=== PATIENT | male | born 1990 | race Two or more races ===

== ENCOUNTER 2018-03-01 03:12 | Emergency (ER) | payer MEDICAID, OTHER ==
[~2018-03-01] VITALS: Ht 157.5 cm; Wt 72.6 kg
[2018-03-01 04:28] LABS: Basophils # (auto) 0 uL; Basophils % (auto) 0.3 % (0.0-2.0); Eosinophils # (auto) 0.1 uL; Hematocrit 45.1 % (41.0-53.0); Lymphocytes # (auto) 1.9 uL; Lymphocytes % (auto) 21.3 % (10.0-50.0); Mean Corpuscular Hemoglobin 28.8 pg (28.0-32.0); Mean Corpuscular Hgb Conc. 33.2 g/dL (32.0-36.0); Mean Corpuscular Volume 86.8 fL (80.0-100.0); Monocytes # (auto) 0.5 uL; Monocytes % (auto) 5.8 % (0.0-12.0); Neutrophils # (auto) 6.5 uL; Neutrophils % (auto) 71.6 % (37.0-80.0); Nucleated Red Blood Cells % 0.1 %; Platelet Count (auto) 183 10^3/uL (140-450); Red Cell Distribution Width 13.8 % (11.8-14.3); White Blood Cell 9.1 10^3/uL (4.4-10.8)
[2018-03-01 04:38] LABS: Alanine Aminotransferase 24 U/L (16-61); Anion Gap 11 (5-15); Aspartate Aminotransferase 26 U/L (15-37); BUN/Creatinine Ratio 15.5; Blood Urea Nitrogen 17 mg/dL (7-18); Calcium 8.7 mg/dL (8.5-10.1); Carbon Dioxide 25 mmol/L (21-32); Chloride 103 mmol/L (98-107); GFR African American 103 mL/min; GFR Non-African American 85 mL/min; Glucose 142 mg/dL (74-106); Magnesium 1.9 mg/dL (1.6-2.6); Potassium 3.3 mmol/L (3.5-5.1); Sodium 139 mmol/L (136-145)
[2018-03-01 04:43] LABS: Alkaline Phosphatase 80 U/L (45-117); Bilirubin, Total 0.4 mg/dL (0.2-1.0); Total Protein 7.6 g/dL (6.4-8.2)
[2018-03-01] MEDS ORDERED: POTASSIUM EFFERVESENT TAB 25 MEQ PO ONE (08:00)
[2018-03-01 08:09] VITALS: BP 109/70
[2018-03-01] MEDS ORDERED: POTASSIUM EFFERVESENT TAB 25 MEQ ONE (08:12)
[2018-03-01 08:24] LABS: Urine Bacteria FEW /hpf (None Seen); Urine Blood Negative /uL (Negative); Urine Mucus FEW (None Seen); Urine Specific Gravity 1.011 (1.001-1.035); Urine WBC 3 /hpf (0 - 3)
== END 2018-03-01 08:41 | disposition home or self-care (01) ==
LOC: EDSEX 03:12 → EDBD 03:12 → ER 03:16
DX: R42 Dizziness and giddiness (principal); R55 Syncope and collapse
CPT/HCPCS: 36415; 70450; 70486; 71045; 80053; 81001; 83735; 84484; 85025; 93005

== ENCOUNTER → 2023-11-30 | Outpatient (CLI) | payer MEDICAID ==
[2023-11-30 09:53] LABS: Urine Bacteria None Seen /hpf (None Seen)
[2023-11-30 10:01] LABS: Basophils # (auto) 0.1 10 ^3/uL (0-0.2); Basophils % (auto) 1.2 % (0.0-2.0); Eosinophils # (auto) 0.1 10 ^3/uL (0-0.8); Eosinophils % (auto) 2.9 % (0.0-7.0); Hematocrit 46.1 % (41.0-53.0); Hemoglobin 15.2 g/dL (13.5-17.5); Lymphocytes % (auto) 39.4 % (10.0-50.0); Mean Corpuscular Hemoglobin 28.8 pg (28.0-32.0); Mean Corpuscular Hgb Conc. 32.9 g/dL (32.0-36.0); Mean Corpuscular Volume 87.5 fL (80.0-100.0); Monocytes # (auto) 0.3 10 ^3/uL (0-1.3); Monocytes % (auto) 5.9 % (0.0-12.0); Neutrophils # (auto) 2.5 10 ^3/uL (1.6-8.6); Neutrophils % (auto) 50.6 % (37.0-80.0); Nucleated Red Blood Cells % 0.2 %; Red Blood Cells 5.26 10^6/uL (4.5-5.90); Red Cell Distribution Width 13.3 % (11.8-14.3)
[2023-11-30 10:22] LABS: Urine Blood Negative /uL (Negative); Urine Clarity Clear (Clear); Urine Protein, UAD Negative (Negative); Urine Specific Gravity 1.004 (1.001-1.035); Urine Urobilinogen Normal (Negative); Urine WBC 9 /hpf (0 - 3)
[2023-11-30 10:24] LABS: Urine Color Straw (Yellow)
[2023-11-30 10:31] LABS: Alanine Aminotransferase 10 U/L (7-40); Albumin 4.4 g/dL (3.2-4.8); Alkaline Phosphatase 76 U/L (46-116); Anion Gap 4 (5-15); Aspartate Aminotransferase 16 U/L (13-40); BUN/Creatinine Ratio 5.6 (10.0-20.0); Blood Urea Nitrogen 6 mg/dL (9-23); Calcium 9.7 mg/dL (8.5-10.1); Carbon Dioxide 29 mmol/L (20-30); Chloride 106 mmol/L (98-107); Glucose 103 mg/dL (74-106); LDL Cholesterol 133 mg/dL (< 100); Potassium 4.2 mmol/L (3.5-5.1); Sodium 139 mmol/L (136-145); Triglycerides 229 mg/dL (< 150)
[2023-11-30 10:32] LABS: Bilirubin, Total 0.6 mg/dL (0.2-1.0); Cholesterol 207 mg/dL (< 200); HDL Cholesterol 42 mg/dL (40-59)
[2023-12-02 08:05] LABS: Chlamydia Trachomatis, NAA Negative (Negative); Neisseria gonorrhoeae, NAA Negative (Negative)
[2023-12-02 13:06] LABS: RPR Non Reactive (Non Reactive)
[2023-12-03 09:57] LABS: Hepatitis B Core Total AB Negative (Negative)
[2023-12-03 13:41] LABS: Hepatitis A Total Antibody Positive (Negative); Hepatitis B Surface Antibody Negative (Negative); Hepatitis B Surface Antigen Negative (Negative); Hepatitis C Antibody Negative (Negative)
== END | disposition home or self-care (01) ==
LOC: LAB 09:38
DX: Z00.01 Encounter for general adult medical examination with abnormal findings (principal); E55.9 Vitamin D deficiency, unspecified
CPT/HCPCS: 36415; 80053; 80061; 81001; 82306; 83036; 84443; 85025; 86592; 86703; 86704; 86706; 86708; 86803; 87340

== ENCOUNTER → 2024-04-03 | Outpatient (CLI) | payer MEDICAID ==
[2024-04-03 10:14] LABS: Alanine Aminotransferase 11 U/L (7-40); Alkaline Phosphatase 77 U/L (46-116); Anion Gap 7 (5-15); Calcium 10.1 mg/dL (8.7-10.4); Carbon Dioxide 27 mmol/L (20-30); Chloride 103 mmol/L (98-107); Glucose 101 mg/dL (74-106); Potassium 4.1 mmol/L (3.5-5.1); Sodium 137 mmol/L (136-145)
[2024-04-03 10:15] LABS: BUN/Creatinine Ratio 7.4 (10.0-20.0); Blood Urea Nitrogen 8 mg/dL (9-23); LDL Cholesterol 132 mg/dL (< 100); Triglycerides 270 mg/dL (< 150)
[2024-04-03 10:16] LABS: Albumin 4.6 g/dL (3.2-4.8)
[2024-04-03 10:17] LABS: Aspartate Aminotransferase 13 U/L (13-40); Bilirubin, Total 0.8 mg/dL (0.2-1.0); Cholesterol 198 mg/dL (< 200); HDL Cholesterol 39 mg/dL (40-59); Total Protein 7.2 g/dL (5.7-8.2)
[2024-04-03 12:51] LABS: Hepatitis B Core Total AB Negative (Negative)
[2024-04-03 13:15] LABS: Hepatitis A Total Antibody Positive (Negative); Hepatitis B Surface Antibody Negative (Negative); Hepatitis B Surface Antigen Negative (Negative); Hepatitis C Antibody Negative (Negative)
== END | disposition home or self-care (01) ==
LOC: LAB 09:14
PROVIDERS: ATTEND Student in an Organized Health Care Education/Training Program
DX: E78.5 Hyperlipidemia, unspecified (principal)
CPT/HCPCS: 36415; 80053; 80061; 82728; 83540; 83550; 86704; 86706; 86708; 86803; 87340

== ENCOUNTER 2024-10-07 08:13 | Emergency (ER) | payer OTHER ==
[~2024-10-07] VITALS: Ht 165.1 cm; Wt 79.3 kg
[2024-10-07 08:33] VITALS: PULSE 74; RESP 17; O2SAT 98
--- NOTE | 2024-10-07 09:11 | ED.PDOC ---
GI ASSESSMENT HPI Comments 33 y/o M, presents to the ED for CC of abdominal pain. Patient states, he has been experiencing epigastric abdominal pain with associated hiccups, nausea, and vomiting. Patient relays, that hiccups have caused him to be unable to sleep often waking him up. Patient denies fever, chills, diarrhea, body-aches, fatigue, or weakness. No other associated symptoms, modifiers, recent injuries or sick contacts at this time. Chief Complaint: Abdominal Pain Time Seen by MD: 09:00 Primary Care Provider: none Reviewed Notes: Nurses Notes, Medications, Allergies Allergies: Coded Allergies: NO KNOWN ALLERGIES (Unverified , 06/24/15) Home Meds Active Scripts Pantoprazole Sodium Sesquihydr (Protonix) 40 Mg Tab, 40 MG PO DAILY for 7 Days, #7 TAB Prov:CRISTIANE BROOKE MD 10/07/24 Information Source: Patient Mode of Arrival: Ambulatory Timing: Days Duration: Since onset Prehospital treatment: None Quality: None Vomitus: Watery Stool: Normal Severity: Moderate Recent: None Recent Hx of: None Pain Location: Epigastric Modifying Factors: Nothing Associated sign and symptoms: Nausea, Vomiting Past Medical History PAST MEDICAL HISTORY: Denies Surgical History: Denies all surgeries Family History Family History: Unknown Social History Smoker: Non-Smoker Alcohol: Denies ETOH Use Drugs: Denies Drug Use Lives In: Home Constitutional: denies: chills, diaphoresis, fatigue, fever, malaise, sweats, weakness, others EENTM: denies: blurred vision, double vision, ear bleeding, ear discharge, ear drainage, ear pain, ear ringing, eye pain, eye redness, hearing loss, mouth pain, mouth swelling, nasal discharge, nose bleeding, nose congestion, nose pain, photophobia, tearing, throat pain, throat swelling, voice changes, others Respiratory: denies: cough, hemoptysis, orthopnea, SOB at rest, shortness of breath, SOB with excertion, stridor, wheezing, others Cardiovascular: denies: chest pain, dizzy spells, diaphoresis, Dyspnea on exertion, edema, irregular heart beat, left arm pain, lightheadedness, palpitations, PND, syncope, others Gastrointestinal: reports: abdominal pain, nausea, vomiting; denies: abdomen distended, blood streaked bowels, constipated, diarrhea, dysphagia, difficulty swallowing, hematemesis, melena, poor appetite, poor fluid intake, rectal bleeding, rectal pain, others Genitourinary: denies: burning, dysuria, flank pain, frequency, hematuria, incontinence, penile discharge, penile sore, pain, testicle pain, testicle swelling, urgency, others Neurological: denies: dizziness, fainting, headache, left sided numbness, left sided weakness, numbness, paresthesia, pre-existing deficit, right sided numbness, right sided weakness, seizure, speech problems, tingling, tremors, weakness, others Musculoskeletal: denies: back pain, gout, joint pain, joint swelling, muscle pain, muscle stiffness, neck pain, others Integumetry: denies: bruises, change in color, change in hair/nails, dryness, laceration, lesions, lumps, rash, wounds, others Allergic/Immunocompromised: denies: Difficulty Healing, Frequent Infections, Hives, Itching, others Hematologic/Lymphatic: denies: anemia, blood clots, easy bleeding, easy bruising, swollen glands, others Endocrine: denies: excessive hunger, excessive sweating, excessive thirst, excessive urination, flushing, intolerance to cold, intolerance to heat, unexplained weight gain, unexplained weight loss, others Psychiatric: denies: anxiety, bipolar disorder, depression, hopeless, panic disorder, schizophrenia, sleepless, suicidal, others All Other Systems: Reviewed and Negative Physical Exam General Appearance: Moderate Distress HEENT: Normal ENT Inspection, Pharynx Normal, TMs Normal Neck: Full Range of Motion, Non-Tender, Normal, Normal Inspection Respiratory: Chest Non-Tender, Lungs Clear, No Accessory Muscle Use, No Respiratory Distress, Normal Breath Sounds Cardiovascular: Tachycardia Breast Exam: Deferred Gastrointestinal: No Organomegaly, Non Tender, No Pulsatile Mass, Normal Bowel Sounds, Soft Genitalia: Deferred Pelvic: Deferred Rectal: Deferred Extremities: No calf tenderness, Normal capillary refill, Normal inspection, Normal range of motion, Non-tender, No pedal edema Musculoskeletal : Apperance: Normal Neurologic: Alert, 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 Was a procedure done?: No GI differential Dx Differential Diagnosis: Constipation, Diverticular disease, Esophagitis, Gastritis/PUD, Gastroenteritis, Electrolyte Imbalance, Food Poisoning, Bacterial, Viral X-Ray, Labs, Meds, VS Vital Signs Date Time Temp Pulse Resp B/P (MAP) Pulse Ox O2 Delivery O2 Flow Rate FiO2 10/07/24 08:35 99.5 74 17 121/64 (83) 98 99.5 10/07/24 08:33 74 17 98 Room Air* 0 21 10/07/24 08:21 98.4 77 17 112/61 (78) 97 98.4 Lab Test 10/07/24 09:36 Range/Units Urine Color Yellow Yellow Urine Clarity Clear Clear Urine pH 6.0 5.0-9.0 Urine Specific [place] 1.033 1.001-1.035 Urine Protein 1+ H Negative Urine Ketones 3+ H Negative Urine Blood Trace H Negative /uL Urine Nitrite Negative Negative Urine Bilirubin Negative Negative Urine Urobilinogen Normal Negative mg/dL Urine Leukocyte Esterase Negative Negative /uL Urine RBC 4 0 - 3 /hpf Urine Microscopic WBC 4 H 0-3 /HPF Urine Squamous Epithelial Cells Few <5 /hpf Urine Bacteria None seen None Seen /hpf Urine Mucus Few None Seen Urine Glucose Trace Normal mg/dL Current Medications Medications (Trade) Dose Ordered Sig/Ni Route Start Time Stop Time Status Last Admin Belladonna Alkaloids/ Phenobarbital ( Elixir) 10 ml ONCE ONCE PO 10/07/24 09:00 10/07/24 09:01 DC 10/07/24 09:24 Al Hydrox/Mg Hydrox/Simethicone (Maalox Plus) 30 ml ONCE ONCE PO 10/07/24 09:00 10/07/24 09:01 DC 10/07/24 09:24 Lidocaine HCl (Xylocaine 2% Viscous) 15 ml ONCE ONCE PO 10/07/24 09:00 10/07/24 09:01 DC 10/07/24 09:24 Sodium Chloride 1,000 ml @ 1,000 mls/hr Q1H ONCE IV 10/07/24 09:00 10/07/24 09:59 DC 10/07/24 09:23 Lorazepam (Ativan Inj) 1 mg ONCE ONCE IV 10/07/24 09:00 10/07/24 09:01 DC 10/07/24 09:[address] [address] Ph: [phone] DIAGNOSTIC IMAGING Diagnostic Imaging Report : [id number] Signed PATIENT: TYLER MURRYT: [id number] UNIT: [id number] : 1990 LOC: ER ROOM / BED: / AGE / SEX: 33 / M ADM STATUS: REG ER SERVICE 4 ORDERING PHYSICIAN: CRISTIANE BROOKE MD PROCEDURE(s): CXRP - CHEST PORTABLE REASON: sob ORDER NUMBER(s): [id number], ACCESSION NUMBER(s): [id number] CHEST RADIOGRAPH Indication: sob Technique: Single frontal view of the chest was obtained Comparison: None FINDINGS: Lines and Tubes: None Lungs: No focal consolidation. Pleura: No effusion. No pneumothorax. Cardiomediastinal contours: Unremarkable Bones: No acute osseous abnormality. IMPRESSION: 1. No acute cardiopulmonary disease. ATED BY: LASHAE MAGAÑA MD DICTATED DATE/TIME: 10/07/24915 SIGNED BY: LASHAE MAGAÑA MD SIGNED DATE/TIME: 10/07/24915 CC: Patient alert. No sign of any distress. No shortness a breath. Vitals stable. No leg swelling. He is anxious. Possible gastritis. Was given GI cocktail. Establish intravenous access. Was given fluids. Chest x-ray reviewed does not show any acute process. Was given Ativan. Heart rate within normal limits. No sign of distress. Possible gastritis. Was given prescription of Protonix. Explained to the patient. Was told to follow up with his primary care physician. Was told to come back if there is any problem. Time of 1ST Reevaluation: 09:30 Reevaluation 1ST: Improved Patient Education/Counseling: Diagnosis, Treatment Family Education/Counseling: Diagnosis, Treatment Departure 1 Departure Time of Disposition: 11:04 Impression: Primary Impression: Gastritis Qualified Codes: K29.00 - Acute gastritis without bleeding Additional Impressions: Anxiety Dehydration Disposition: 01 HOME / SELF CARE / HOMELESS Condition: Good e-Prescriptions Pantoprazole Sodium Sesquihydr (Protonix) 40 Mg Tab 40 MG PO DAILY for 7 Days, #7 TAB Prov: CRISTIANE BROOKE MD 10/07/24 Discharged With: Self Critical Care Note Critical Care Time?: No Stability Stability form required: No Heart Score Heart Score: Heart Score Response (Comments) Value History N/A 0 EKG N/A 0 Age N/A 0 Risk Factors N/A 0 Troponin N/A 0 Total 0 I personally scribed for CRISTIANE BROOKE MD ([email or web address]) on 10/07/24 at 09:11. Electronically submitted by Simi Can ([email or web address]). I personally scribed for CRISTIANE BROOKE MD ([email or web address]) on 10/07/24 at 10:18. Electronically submitted by Simi Can ([email or web address]). CRISTIANE BROOKE MD Oct 07, 2024 09:11
--- NOTE | 2024-10-07 09:18 | DVH ---
CHEST RADIOGRAPH Indication: sob Technique: Single frontal view of the chest was obtained Comparison: None FINDINGS: Lines and Tubes: None Lungs: No focal consolidation. Pleura: No effusion. No pneumothorax. Cardiomediastinal contours: Unremarkable Bones: No acute osseous abnormality. IMPRESSION: 1. No acute cardiopulmonary disease.
[2024-10-07] MEDS: SODIUM CHLORIDE 0.9% 1,000 ML IV ONE (09:23)
[2024-10-07] MEDS: LORazepam 2MG/ML-1ML VIAL IV ONE (09:23)
[2024-10-07] MEDS: LIDOCAINE VISCOUS 2% 15ML UD PO ONE (09:24)
[2024-10-07] MEDS: DONNATAL 5ml ORAL Elix (BELLADONNA ALK-PHENOBARB) PO ONE (09:24)
[2024-10-07] MEDS: MAALOX PLUS or MAALOX 30 ML PO ONE (09:24)
[2024-10-07 10:43] LABS: Urine Bacteria None Seen /hpf (None Seen)
[2024-10-07 11:03] LABS: Urine Blood TRACE /uL (Negative); Urine Clarity Clear (Clear); Urine Color Yellow (Yellow); Urine Mucus FEW (None Seen); Urine Protein, UAD 1+ (Negative); Urine Specific Gravity 1.033 (1.001-1.035); Urine Squamous Epithelial Cell FEW /hpf (<5); Urine Urobilinogen Normal (Negative); Urine WBC 4 /HPF (0-3)
[2024-10-07] MEDS ORDERED: PANT40TA2 PO (11:05)
[2024-10-07 11:18] VITALS: BP 114/59; PULSE 81; RESP 17; TEMP 99.5; O2SAT 98
== END 2024-10-07 11:18 | disposition home or self-care (01) ==
LOC: ER 08:13
DX: K29.70 Gastritis, unspecified, without bleeding (principal); F41.9 Anxiety disorder, unspecified; E86.0 Dehydration; R11.2 Nausea with vomiting, unspecified; Z79.899 Other long term (current) drug therapy
CPT/HCPCS: 71045; 81001; 96361; 96374; 99284; J2060; J7030

== ENCOUNTER 2024-10-09 13:40 | Inpatient (IN) | payer OTHER, MEDICARE ==
[~2024-10-09] VITALS: Ht 165.1 cm; Wt 79.7 kg
[~2024-10-09 13:40] MED LIST: PANT40TA2 PO
--- NOTE | 2024-10-09 14:53 | ED.PDOC ---
History of Present Illness HPI Comments A 33 YEAR OLD MALE PRESENTS TO THE ED WITH CHIEF COMPLAINT OF EPIGASTRIC PAIN AND BURPING. PATIENT REPORTS THAT HE HAS BEEN EXPERIENCING EPIGASTRIC PAIN WITH ASSOCIATED RADIATION TO MID STERNUM AND BURPING FOR THE PAST WEEK. PATIENT RELAYS THAT HE HAS HAD SIMILAR SYMPTOMS IN THE PAST WHEN EATING SPICY FOOD AND HE HAD BEEN DIAGNOSED WITH GERD. PATIENT NOTES HE HAD BEEN SEEN IN THE ED 2 DAYS AGO AND WAS DIAGNOSED WITH GASTRITIS AND ANXIETY, BEING PRESCRIBED PROTONIX WITH NO RELIEF NOTED WHEN IT WAS TAKEN. PATIENT DENIES ANY FEVER, CHILLS, N/V/D, DIZZINESS, HEADACHE, NUMBNESS, OR WEAKNESS. NO OTHER SYMPTOMS REPORTED AT THIS TIME OF CARE. Chief Complaint: Medical Clearance Time Seen by MD: 14:49 Primary Care Provider: none Reviewed Notes: Nurses Notes, Medications, Allergies Allergies: Coded Allergies: NO KNOWN ALLERGIES (Unverified , 06/24/15) Home Meds Active Scripts Pantoprazole Sodium Sesquihydr (Protonix) 40 Mg Tab, 40 MG PO DAILY for 7 Days, #7 TAB Prov:CRISTIANE BROOKE MD 10/07/24 Information Source: Patient Mode of Arrival: Ambulatory Severity: Moderate Timing: Weeks Duration: Since onset Prehospital treatment: None Medication Refill: For: Other (EPIGASTRIC PAIN TO STERNUM WITH BURPING) Past Medical History PAST MEDICAL HISTORY: Anxiety, GERD Surgical History: Denies all surgeries Family History Family History: Unknown Social History Smoker: Non-Smoker Alcohol: Denies ETOH Use Drugs: Denies Drug Use Lives In: Home Constitutional: denies: chills, diaphoresis, fatigue, fever, malaise, sweats, weakness, others EENTM: denies: blurred vision, double vision, ear bleeding, ear discharge, ear drainage, ear pain, ear ringing, eye pain, eye redness, hearing loss, mouth pain, mouth swelling, nasal discharge, nose bleeding, nose congestion, nose pain, photophobia, tearing, throat pain, throat swelling, voice changes, others Respiratory: denies: cough, hemoptysis, orthopnea, SOB at rest, shortness of breath, SOB with excertion, stridor, wheezing, others Cardiovascular: reports: chest pain; denies: dizzy spells, diaphoresis, Dyspnea on exertion, edema, irregular heart beat, left arm pain, lightheadedness, palpitations, PND, syncope, others Gastrointestinal: reports: abdominal pain, others (BURPING); denies: abdomen distended, blood streaked bowels, constipated, diarrhea, dysphagia, difficulty swallowing, hematemesis, melena, nausea, poor appetite, poor fluid intake, rectal bleeding, rectal pain, vomiting Genitourinary: denies: burning, dysuria, flank pain, frequency, hematuria, incontinence, penile discharge, penile sore, pain, testicle pain, testicle swelling, urgency, others Neurological: denies: dizziness, fainting, headache, left sided numbness, left sided weakness, numbness, paresthesia, pre-existing deficit, right sided numbness, right sided weakness, seizure, speech problems, tingling, tremors, weakness, others Musculoskeletal: denies: back pain, gout, joint pain, joint swelling, muscle pain, muscle stiffness, neck pain, others Integumetry: denies: bruises, change in color, change in hair/nails, dryness, laceration, lesions, lumps, rash, wounds, others Allergic/Immunocompromised: denies: Difficulty Healing, Frequent Infections, Hives, Itching, others Hematologic/Lymphatic: denies: anemia, blood clots, easy bleeding, easy bruising, swollen glands, others Endocrine: denies: excessive hunger, excessive sweating, excessive thirst, excessive urination, flushing, intolerance to cold, intolerance to heat, unex plained weight gain, unexplained weight loss, others Psychiatric: reports: anxiety; denies: bipolar disorder, depression, hopeless, panic disorder, schizophrenia, sleepless, suicidal, others All Other Systems: Reviewed and Negative Physical Exam General Appearance: Mild Distress, Other (ANXIOUS ) HEENT: Normal ENT Inspection, PERRL/EOMI Neck: Full Range of Motion, Non-Tender, Normal, Normal Inspection Respiratory: Chest Non-Tender, Lungs Clear, No Accessory Muscle Use, No Respiratory Distress, Normal Breath Sounds Cardiovascular: No Edema, No JVD, No Murmur, No Gallop, Normal Peripheral Pulses, Regular Rate/Rhythm Breast Exam: Deferred Gastrointestinal: Epigastric, No Organomegaly, No Pulsatile Mass, Normal Bowel Sounds, Soft, Tenderness (EPIGASTRIC, NO GUARDING AND REBOUND TENDERNESS, +BURPING. 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 Was a procedure done?: No Differential Dx Considerations may include: GERD, GASTRITIS, GASTROENTERITIS, PANCREATITIS, CHOLECYSTITIS X-Ray, Labs, Meds, VS Vital Signs Date Time Temp Pulse Resp B/P (MAP) Pulse Ox O2 Delivery O2 Flow Rate FiO2 10/09/24 14:41 98.9 68 18 112/72 (85) 98 98.9 10/09/24 14:41 68 18 98 Room Air 10/09/24 13:54 98.9 68 18 112/72 (85) 98 98.9 Lab Test 10/09/24 15:02 Range/Units White Blood Count 4.4 4.4-10.8 10^3/uL Red Blood Count 4.92 4.5-5.90 10^6/uL Hemoglobin 14.3 13.5-17.5 g/dL Hematocrit 43.1 41.0-53.0 % Mean Corpuscular Volume 87.6 80.0-100.0 fL Mean Corpuscular Hemoglobin 29.0 28.0-32.0 pg Mean Corpuscular Hemoglobin Concent 33.1 32.0-36.0 g/dL Red Cell Distribution Width 13.3 11.8-14.3 % Platelet Count 154 140-450 10^3/uL Mean Platelet Volume 9.2 6.9-10.8 fL Neutrophils (%) (Auto) 70.4 37.0-80.0 % Lymphocytes (%) (Auto) 17.5 10.0-50.0 % Monocytes (%) (Auto) 11.6 0.0-12.0 % Eosinophils (%) (Auto) 0.2 0.0-7.0 % Basophils (%) (Auto) 0.3 0.0-2.0 % Neutrophils # (Auto) 3.1 1.6-8.6 10 ^3/uL Lymphocytes # (Auto) 0.8 0.4-5.4 10 ^3/uL Monocytes # (Auto) 0.5 0-1.3 10 ^3/uL Eosinophils # (Auto) 0 0-0.8 10 ^3/uL Basophils # (Auto) 0 0-0.2 10 ^3/uL Nucleated Red Blood Cells 0.3 % Sodium Level 132 L 136-145 mmol/L Potassium Level 3.4 L 3.5-5.1 mmol/L Chloride Level 97 L 98-107 mmol/L Carbon Dioxide Level 23 20-31 mmol/L Anion Gap 12 5-15 Blood Urea Nitrogen 11 9-23 mg/dL Creatinine 0.81 0.700-1.30 mg/dL Glomerular Filtration Rate Calc 119 >90 mL/min BUN/Creatinine Ratio 13.6 10.0-20.0 Serum Glucose 105 74-106 mg/dL Calcium Level 8.7 8.7-10.4 mg/dL Total Bilirubin 0.7 0.2-1.0 mg/dL Aspartate Amino Transferase (AST) 29 13-40 U/L Alanine Aminotransferase (ALT) 16 7-40 U/L Alkaline Phosphatase 60 46-116 U/L Troponin I High Sensitivity 3 L </=54 ng/L Total Protein 6.1 5.7-8.2 g/dL Albumin 4.1 3.2-4.8 g/dL Lipase 115 H 12-53 U/L Plasma/Serum Blood Alcohol 4.7 <10 mg/dL Current Medications Medications (Trade) Dose Ordered Sig/Ni Route Start Time Stop Time Status Last Admin Belladonna Alkaloids/ Phenobarbital ( Elixir) 10 ml ONCE ONCE PO 10/09/24 15:00 10/09/24 15:01 DC 10/09/24 15:13 Al Hydrox/Mg Hydrox/Simethicone (Maalox Plus) 30 ml ONCE ONCE PO 10/09/24 15:00 10/09/24 15:01 DC 10/09/24 15:11 Famotidine (Pepcid Tablet) 40 mg ONCE ONCE PO 10/09/24 15:00 10/09/24 15:01 DC 10/09/24 15:13 Lidocaine HCl (Xylocaine 2% Viscous) 10 ml ONCE ONCE PO 10/09/24 15:00 10/09/24 15:01 DC 10/09/24 15:13 GALLBLADDER US: Findings: Liver measures 15.0 cm in length with normal echotexture and contour. No evidence of focal hepatic lesions or intra- or extrahepatic ductal dilatation. Common bile duct measures 0.4 cm in diameter. Normal hepatopedal flow noted within the portal vein. No perihepatic free fluid is noted. Gallbladder appears within normal limits with gallbladder wall thickness measuring 0.3 cm. No evidence of shadowing calculi, biliary sludge or pericholecystic fluid. Negative sonographic Avalos's sign. Pancreas not well-visualized due to overlying bowel gas. Right kidney measures 9.7 cm with normal contours, echotexture and cortical thickness. No evidence of hydronephrosis, calculi, cystic or solid renal lesions. Partially visualized inferior vena cava unremarkable. Impression: 1. No evidence of acute right upper quadrant abnormalities. X-Ray, Labs, Meds, VS Comment EXTERNAL MEDICAL RECORDS REVIEWED: [NONE] INDEPENDENT HISTORIANS: [NONE] SOCIAL DETERMINANTS OF HEALTH: [NONE] LABS ORDERED: EKG, CBC, CMP, LIPASE REVIEWED AND INTERPRETED RESULTS: GALLBLADDER US IMAGING ORDERED: GALLBLADDER US TREATMENTS ORDERED: GI COCKTAIL, PROTONIX 40MG PO, 1L NS IV BOLUS PROCEDURES PERFORMED: NONE CRITICAL CARE TIME: NONE DUE TO PATIENT'S ELEVATED LIPASE AND FAILURE OF OUTPATIENT TREATMENT 2 DAYS AGO, PATIENT IS TO BE ADMITTED TO THE HOSPITAL FOR FURTHER INPATIENT EVALUATION AND TREATMENT. I HAVE DISCUSSED THE PATIENT WITH THE ATTENDING PHYSICIAN DR. BLACKWELL AND HE AGREES WITH THE PATIENT'S PLAN OF CARE AND DISPOSITION. Time of 1ST Reevaluation: 15:00 Reevaluation 1ST: Unchanged Time of 2ND Reevaluation: 17:00 Reevaluation 2ND: Unchanged Patient Education/Counseling: Diagnosis, Treatment Family Education/Counseling: Diagnosis, Treatment Departure 1 Departure Time of Disposition: 16:10 Impression: Primary Impression: Acute pancreatitis Qualified Codes: K85.90 - Acute pancreatitis without necrosis or infection, unspecified Additional Impression: Failure of outpatient treatment Disposition: 09 ADMITTED INPATIENT Condition: Serious Critical Care Note Critical Care Time?: No Stability Stability form required: Yes Unstable for transfer: Requires medication, ED Physician Assesment, Possible rapid decline Heart Score Heart Score: Heart Score Response (Comments) Value History N/A 0 EKG N/A 0 Age N/A 0 Risk Factors N/A 0 Troponin N/A 0 Total 0 I personally scribed for OTILIO MOSELEY ([email or web address]) on 10/09/24 at 14:53. Electronically submitted by Maury Monge ([email or web address]). I personally scribed for OTILIO MOSELEY PA ([email or web address]) on 10/09/24 at 15:45. Electronically submitted by Maury Monge ([email or web address]). I personally scribed for JOSSIE MOSELEYA PA ([email or web address]) on 10/09/24 at 16:05. Electronically submitted by Maury Monge ([email or web address]). I personally scribed for JOSSIE MOSELEYA PA ([email or web address]) on 10/09/24 at 16:10. Electronically submitted by Maury Monge ([email or web address]). I personally scribed for OTILIO MOSELEY PA ([email or web address]) on 10/09/24 at 16:12. Electronically submitted by Maury Monge ([email or web address]). I personally scribed for OTILIO MOSELEY PA ([email or web address]) on 10/09/24 at 16:45. Electronically submitted by Maury Monge ([email or web address]). OTILIO MOSELEY Oct 09, 2024 14:53
[2024-10-09] MEDS ORDERED: LIDOCAINE 1% HCL (LOCAL ANESTH.) INJ 20ML MDV IJ ONE (15:00)
[2024-10-09] MEDS: MAALOX PLUS or MAALOX 30 ML PO ONE (15:11)
[2024-10-09] MEDS: FAMOTIDINE 20 MG TAB PO ONE (15:13)
[2024-10-09] MEDS: DONNATAL 5ml ORAL Elix (BELLADONNA ALK-PHENOBARB) PO ONE (15:13)
[2024-10-09] MEDS: LIDOCAINE VISCOUS 2% 15ML UD PO ONE (15:13)
[2024-10-09 15:19] LABS: Basophils # (auto) 0 10 ^3/uL (0-0.2); Basophils % (auto) 0.3 % (0.0-2.0); Eosinophils # (auto) 0 10 ^3/uL (0-0.8); Eosinophils % (auto) 0.2 % (0.0-7.0); Hematocrit 43.1 % (41.0-53.0); Hemoglobin 14.3 g/dL (13.5-17.5); Lymphocytes # (auto) 0.8 10 ^3/uL (0.4-5.4); Lymphocytes % (auto) 17.5 % (10.0-50.0); Mean Corpuscular Hgb Conc. 33.1 g/dL (32.0-36.0); Mean Corpuscular Volume 87.6 fL (80.0-100.0); Monocytes # (auto) 0.5 10 ^3/uL (0-1.3); Monocytes % (auto) 11.6 % (0.0-12.0); Neutrophils # (auto) 3.1 10 ^3/uL (1.6-8.6); Neutrophils % (auto) 70.4 % (37.0-80.0); Nucleated Red Blood Cells % 0.3 %; Platelet Count (auto) 154 10^3/uL (140-450); Red Blood Cells 4.92 10^6/uL (4.5-5.90); Red Cell Distribution Width 13.3 % (11.8-14.3); White Blood Cell 4.4 10^3/uL (4.4-10.8)
[2024-10-09 15:32] LABS: Alanine Aminotransferase 16 U/L (7-40); Albumin 4.1 g/dL (3.2-4.8); Alkaline Phosphatase 60 U/L (46-116); Anion Gap 12 (5-15); Aspartate Aminotransferase 29 U/L (13-40); BUN/Creatinine Ratio 13.6 (10.0-20.0); Bilirubin, Total 0.7 mg/dL (0.2-1.0); Blood Urea Nitrogen 11 mg/dL (9-23); Calcium 8.7 mg/dL (8.7-10.4); Carbon Dioxide 23 mmol/L (20-31); Glucose 105 mg/dL (74-106); Total Protein 6.1 g/dL (5.7-8.2)
[2024-10-09 15:33] LABS: Chloride 97 mmol/L (98-107); Potassium 3.4 mmol/L (3.5-5.1); Sodium 132 mmol/L (136-145)
[2024-10-09 15:52] LABS: Lipase 115 U/L (12-53)
--- NOTE | 2024-10-09 16:35 | DVH ---
EXAM: US GALLBLADDER CLINICAL HISTORY: EPIGASTRIC PAIN TECHNIQUE: Grayscale and limited color flow doppler ultrasound of the right upper quadrant is perfor med. COMPARISON: None Findings: Liver measures 15.0 cm in length with normal echotexture and contour. No evidence of focal hepatic le sions or intra- or extrahepatic ductal dilatation. Common bile duct measures 0.4 cm in diameter. Norm al hepatopedal flow noted within the portal vein. No perihepatic free fluid is noted. Gallbladder appears within normal limits with gallbladder wall thickness measuring 0.3 cm. No evidenc e of shadowing calculi, biliary sludge or pericholecystic fluid. Negative sonographic Avalos's sign. Pancreas not well-visualized due to overlying bowel gas. Right kidney measures 9.7 cm with normal contours, echotexture and cortical thickness. No evidence of hydronephrosis, calculi, cystic or solid renal lesions. Partially visualized inferior vena cava unremarkable. Impression: 1. No evidence of acute right upper quadrant abnormalities.
[2024-10-09] MEDS: SODIUM CHLORIDE 0.9% 1,000 ML IV ONE (20:00)
[2024-10-09 20:04] VITALS: PULSE 67; RESP 16; O2SAT 97
[2024-10-09 21:59] VITALS: BP 107/64; PULSE 61; RESP 14; TEMP 99.2; O2SAT 98
[2024-10-09] MEDS ORDERED: MORPHINE SULFATE INJ 2 MG/ml SYRG IV PRN (23:15)
[2024-10-09] MEDS ORDERED: LACTATED RINGER'S 1,000 ML IV SCH (23:15)
[2024-10-09] MEDS ORDERED: LACTATED RINGER'S 1,850 ML IV ONE (23:15)
[2024-10-09] MEDS ORDERED: POTASSIUM CHLORIDE 40 MEQ, LIDOCAINE 1% (LOCAL ANESTH.) 4 ML in SODIUM CHL 0.9% 250 ML IV ONE (23:15)
[2024-10-09] MEDS ORDERED: ONDANSETRON HCL 4 MG/2 ML VIAL IV PRN (23:15)
[2024-10-09] MEDS ORDERED: PANTOPRAZOLE 40 MG/10 ML VIAL INJ IV ONE (23:15)
--- NOTE | 2024-10-09 23:18 | DVHHPRES ---
History of Present Illness Resident Creating Document: DEMIAN MEDEIROS Reason for Visit: epigastric pain History of Present Illness Patient is a 33-year-old male with a past medical history of GERD and anxiety presented to the ED today chief complaint of epigastric pain. According to patient, the pain has been going on for the past 1 month; however, these past few days, it became so severe and associated with nausea and vomiting thus prompting the patient to come to the ED for evaluation. Pain is located in the epigastrium with radiation to the mid sternum with an associated burping. Patient mentioned that he had similar pain in the past when he was diagnosed with GERD. Patient actually seen in the ED about 2 days ago managed for gastritis and send home with Protonix. Patient denies any fever, chills, dizziness, headache, alcohol consumption, spicy food consumption, any illicit drug uses or RUQ pain, spider bite or scorpion bites. Past medical history: Anxiety, GERD Past surgical history: None Family history: Noncontributory to the current illness Social history: lives at home. does not drink or smoke Medications: Pantoprazole Sodium 40 mg daily po Review of Systems Review of Systems Constitutional: Denies fever no chills, looking see sick HEENT: Denies headache, ear pain, ear discharges, conjunctivitis, nasal discharge throat pain Cardiovascular: Denies chest pain, palpitation, orthopnea, PND, or pedal edema Respiratory: Denies shortness of breath, cough cough, sputum production, hemoptysis, GI: Epigastric pain, nausea, vomiting; No diarrhea, hematemesis, hematochezia, : Denies frequency, urgency, hematuria, Endocrine: Denies unintentional weight gain or weight loss, feeling of hot flashes, Diogenes: Denies easy bruising, bleeding disorders, epistaxis Musculoskeletal: Denies joint pains, muscle aches Psych: No evidence of depression, meg, suicidal ideation Allergies: Coded Allergies: NO KNOWN ALLERGIES (Unverified , 06/24/15) Exam Vital Signs Vital Signs Date Time Temp Pulse Resp B/P (MAP) Pulse Ox O2 Delivery O2 Flow Rate FiO2 10/09/24 21:59 99.2 61 14 107/64 (78) 98 99.2 10/09/24 20:04 Room Air* 0 21 Exam General Appearance: Alert, Oriented X3, Cooperative,moderate acute distress HEENT: Atraumatic, PERRLA, EOMI, Mucous membrane moist/pink Respiratory: Clear to auscultation, Normal air movement Cardiovascular: Regular rate, Normal S1, Normal S2, No murmurs, no chest wall tenderness Abdominal: NO distention, mild epigastric tenderness, bowel sounds present, no scars noted Extremities: No clubbing, No cyanosis, No edema, Normal pulses, No tenderness/swelling Skin: No rashes, No breakdown, No significant lesion Neuro: Normal gait, Normal speech, Strength at 5/5 X4 ext, Normal tone, Sensation intact, Cranial nerves 3-12 NL, Reflexes 2+ Psych/Mental Status: Mental status NL, Mood NL Labs/Xrays Labs Test 10/09/24 15:02 Range/Units White Blood Count 4.4 4.4-10.8 10^3/uL Red Blood Count 4.92 4.5-5.90 10^6/uL Hemoglobin 14.3 13.5-17.5 g/dL Hematocrit 43.1 41.0-53.0 % Mean Corpuscular Volume 87.6 80.0-100.0 fL Mean Corpuscular Hemoglobin 29.0 28.0-32.0 pg Mean Corpuscular Hemoglobin Concent 33.1 32.0-36.0 g/dL Red Cell Distribution Width 13.3 11.8-14.3 % Platelet Count 154 140-450 10^3/uL Mean Platelet Volume 9.2 6.9-10.8 fL Neutrophils (%) (Auto) 70.4 37.0-80.0 % Lymphocytes (%) (Auto) 17.5 10.0-50.0 % Monocytes (%) (Auto) 11.6 0.0-12.0 % Eosinophils (%) (Auto) 0.2 0.0-7.0 % Basophils (%) (Auto) 0.3 0.0-2.0 % Neutrophils # (Auto) 3.1 1.6-8.6 10 ^3/uL Lymphocytes # (Auto) 0.8 0.4-5.4 10 ^3/uL Monocytes # (Auto) 0.5 0-1.3 10 ^3/uL Eosinophils # (Auto) 0 0-0.8 10 ^3/uL Basophils # (Auto) 0 0-0.2 10 ^3/uL Nucleated Red Blood Cells 0.3 % Sodium Level 132 L 136-145 mmol/L Potassium Level 3.4 L 3.5-5.1 mmol/L Chloride Level 97 L 98-107 mmol/L Carbon Dioxide Level 23 20-31 mmol/L Anion Gap 12 5-15 Blood Urea Nitrogen 11 9-23 mg/dL Creatinine 0.81 0.700-1.30 mg/dL Glomerular Filtration Rate Calc 119 >90 mL/min BUN/Creatinine Ratio 13.6 10.0-20.0 Serum Glucose 105 74-106 mg/dL Calcium Level 8.7 8.7-10.4 mg/dL Total Bilirubin 0.7 0.2-1.0 mg/dL Aspartate Amino Transferase (AST) 29 13-40 U/L Alanine Aminotransferase (ALT) 16 7-40 U/L Alkaline Phosphatase 60 46-116 U/L Troponin I High Sensitivity 3 L </=54 ng/L Total Protein 6.1 5.7-8.2 g/dL Albumin 4.1 3.2-4.8 g/dL Lipase 115 H 12-53 U/L Plasma/Serum Blood Alcohol 4.7 <10 mg/dL Assessment/Plan Assessment/Plan Assessment Acute pancreatitis GERD Anxiety Mild hyponatremia Mild hypokalemia Gallbladder ultrasound negative for gallstones Plan Pain control If adequate hydration with normal saline Give IV Protonix 40 mg daily Repeat lipase in the a.m. Replace electrolytes and monitor closely Of care discussed for more than 20 minute: Full code Case and plan discussed with Dr. Zhu Plan discussed with: Patient Date of Service: Oct 09, 2024 Billing Provider: ZHOU ZHU MD Common Visit Codes: [id number] INP/OBS CARE (HIGH) DEMIAN MEDEIROS RESIDENT Oct 09, 2024 23:18 ZHOU ZHU MD Oct 10, 2024 11:29
[2024-10-10 00:17] LABS: Triglycerides 94 mg/dL (< 150)
[2024-10-10 00:18] LABS: LDL Cholesterol 79 mg/dL (< 100)
[2024-10-10 00:19] LABS: Cholesterol 129 mg/dL (< 200)
[2024-10-10 00:22] LABS: HDL Cholesterol 34 mg/dL (40-59)
--- NOTE | 2024-10-10 06:44 | DVHDSRES ---
Discharge Summary Date of Admission Resident Creating Document: DEMIAN MEDEIROS RESIDENT Oct 09, 2024 at 23:07 Date of Discharge: Oct 09, 2024 Admitting Diagnosis Epigastric pain, nausea, vomiting Labs/Diagnostic Data: Laboratory Results Test 10/09/24 15:02 White Blood Count 4.4 10^3/uL (4.4-10.8) Red Blood Count 4.92 10^6/uL (4.5-5.90) Hemoglobin 14.3 g/dL (13.5-17.5) Hematocrit 43.1 % (41.0-53.0) Mean Corpuscular Volume 87.6 fL (80.0-100.0) Mean Corpuscular Hemoglobin 29.0 pg (28.0-32.0) Mean Corpuscular Hemoglobin Concent 33.1 g/dL (32.0-36.0) Red Cell Distribution Width 13.3 % (11.8-14.3) Platelet Count 154 10^3/uL (140-450) Mean Platelet Volume 9.2 fL (6.9-10.8) Neutrophils (%) (Auto) 70.4 % (37.0-80.0) Lymphocytes (%) (Auto) 17.5 % (10.0-50.0) Monocytes (%) (Auto) 11.6 % (0.0-12.0) Eosinophils (%) (Auto) 0.2 % (0.0-7.0) Basophils (%) (Auto) 0.3 % (0.0-2.0) Neutrophils # (Auto) 3.1 10 ^3/uL (1.6-8.6) Lymphocytes # (Auto) 0.8 10 ^3/uL (0.4-5.4) Monocytes # (Auto) 0.5 10 ^3/uL (0-1.3) Eosinophils # (Auto) 0 10 ^3/uL (0-0.8) Basophils # (Auto) 0 10 ^3/uL (0-0.2) Nucleated Red Blood Cells 0.3 % Sodium Level 132 mmol/L (136-145) Potassium Level 3.4 mmol/L (3.5-5.1) Chloride Level 97 mmol/L (98-107) Carbon Dioxide Level 23 mmol/L (20-31) Anion Gap 12 (5-15) Blood Urea Nitrogen 11 mg/dL (9-23) Creatinine 0.81 mg/dL (0.700-1.30) Glomerular Filtration Rate Calc 119 mL/min (>90) BUN/Creatinine Ratio 13.6 (10.0-20.0) Serum Glucose 105 mg/dL (74-106) Hemoglobin A1c 5.4 % A1C (<5.7) Calcium Level 8.7 mg/dL (8.7-10.4) Total Bilirubin 0.7 mg/dL (0.2-1.0) Aspartate Amino Transferase (AST) 29 U/L (13-40) Alanine Aminotransferase (ALT) 16 U/L (7-40) Alkaline Phosphatase 60 U/L (46-116) Troponin I High Sensitivity 3 ng/L (</=54) Total Protein 6.1 g/dL (5.7-8.2) Albumin 4.1 g/dL (3.2-4.8) Triglycerides Level 94 mg/dL (< 150) Cholesterol Level 129 mg/dL (< 200) LDL Cholesterol 79 mg/dL (< 100) HDL Cholesterol 34 mg/dL (40-59) Lipase 115 U/L (12-53) Plasma/Serum Blood Alcohol 4.7 mg/dL (<10) Other Laboratory Tests 10/09/24 15:02 Brief Hx & Hospital Course: Patient is a 33-year-old male with a past medical history of GERD and anxiety presented to the ED today chief complaint of epigastric pain. According to patient, the pain has been going on for the past 1 month; however, for these past few days, it became so severe and associated with nausea and vomiting thus prompting this ED visit. Pain is located in the epigastrium with radiation to the mid sternum with an associated burping. Patient mentioned that he had similar pain in the past when he was diagnosed with GERD. Patient actually seen in the ED about 2 days ago managed for gastritis and send home with Protonix. Patient denies any fever, chills, dizziness, headache, alcohol consumption, spicy food consumption, any illicit drug uses or RUQ pain, spider bite or scorpion bites. Patient and parents seemed to want to leave the hospital after had taken a history and examined the patient. I had advised him to stay as I was about to put in the orders for him to be admitted and start his treatment. Soon afterwards the nurse documented the patient had eloped. Diagnoses for which patient was admitted were Acute pancreatitis GERD Anxiety Hypokalemia Hyponatremia Condition at Discharge: Undetermined Final Diagnosis/Problems List Acute Pancreatitis GERD Anxiety Hypokalemia Hyponatremia Discharge Disposition: Eloped Discharge Statement: "Patient was advised to return to the ER or call 911 if any headaches, dizziness, shortness of breath, chest pain, abdominal pain, bleeding, fevers, or worsening of medical condition. Patient was counseled about treatment plan, medications, possible side effects, patientverbalized understanding. All questions were answered to the best of my ability. This discharge took greater then 30 minutes in planning, reviewing documentation, counseling the patient, and discussing with other team members." ASSESSMENT ASSESSMENT Assessment Date of Service: Oct 09, 2024 Billing Provider: ZHOU CAMERON MD Common Visit Codes: 19961-MOX/OBS DISCH DAY <30MIN DEMIAN MEDEIROS RESIDENT Oct 10, 2024 06:44 ZHOU CAMERON MD Oct 10, 2024 11:29
[2024-10-10] MEDS ORDERED: PANTOPRAZOLE 40 MG/10 ML VIAL INJ IV SCH (10:00)
--- NOTE | 2024-10-13 10:57 | ECG ---
[facility] Test Date: 2024-10-09 Test Time: 14:52:36 Pat Name: SMITH MURRY Department: er Room: [address] [place] [address] A Gender: M On Site Services Specialist: rey : 1990 Requested By: OTILIO MOSELEY Order Number: [id number] Reading MD: Minh Faust Measurements Intervals [place] Rate: 68 P: 32 VA: 160 QRS: 210 QRSD: 99 T: 42 QT: 426 QTc: 454 Interpretive Statements Sinus rhythm Low voltage, precordial leads Probable right ventricular hypertrophy Electronically Signed On 10-15-2024 21:04:14 PDT by Minh Faust Please click the below link to view image of tracing.
== END 2024-10-09 23:28 | disposition left against medical advice (07) | DRG 439 ==
LOC: ER 13:40 → OVERFLOW 23:07
PROVIDERS: ATTEND Physician Assistant
DX: K85.90 Acute pancreatitis without necrosis or infection, unspecified (principal); E87.1 Hypo-osmolality and hyponatremia; K21.9 Gastro-esophageal reflux disease without esophagitis; Z53.29 Procedure and treatment not carried out because of patient's decision for other reasons; F41.9 Anxiety disorder, unspecified; E87.6 Hypokalemia; Z79.899 Other long term (current) drug therapy
CPT/HCPCS: 36415; 76705; 80053; 80061; 80320; 83036; 83690; 84484; 85025; 93005; 96360; 96361; G0378; J2003

== ENCOUNTER 2024-10-11 15:54 | Emergency (ER) | payer OTHER ==
[~2024-10-11] VITALS: Ht 165.1 cm; Wt 78.5 kg
--- NOTE | 2024-10-11 16:53 | ED.PDOC ---
History of Present Illness HPI Comments 33 year old male presents to the ED with chief complaint of hiccups/SOB/chest pain. Patient reports that he has been experiencing constant hiccups for the past month. Patient relays that this can cause associated SOB and chest pains at times. Patient was noted to have been seen on 10/09 for the same complaint, being admitted for possible Pancreatitis due to an elevated Lipase of 115, however, patient eloped prior to admission. Patient denies any current chest pain, N/V/D, abdominal pain, cough, congestion, fever, or chills. Chief Complaint: Shortness of Breath Time Seen by MD: 16:50 Primary Care Provider: none Reviewed Notes: Nurses Notes, Medications, Allergies Allergies: Coded Allergies: NO KNOWN ALLERGIES (Unverified , 06/24/15) Home Meds Active Scripts Pantoprazole Sodium Sesquihydr (Protonix) 40 Mg Tab, 40 MG PO DAILY for 7 Days, #7 TAB Prov:CRISTIANE BROOKE MD 10/07/24 Information Source: Patient, Relative (Mother) Mode of Arrival: Ambulatory Severity: Moderate Timing: Months Duration: Since onset Prehospital treatment: None Past Medical History PAST MEDICAL HISTORY: Anxiety, GERD Past Medical History (Other): History of elevated pancreatic enzymes Surgical History: Denies all surgeries Family History Family History: Unknown Social History Smoker: Non-Smoker Alcohol: Denies ETOH Use Drugs: Denies Drug Use Lives In: Home Constitutional: denies: chills, diaphoresis, fatigue, fever, malaise, sweats, weakness, others EENTM: denies: blurred vision, double vision, ear bleeding, ear discharge, ear drainage, ear pain, ear ringing, eye pain, eye redness, hearing loss, mouth pain, mouth swelling, nasal discharge, nose bleeding, nose congestion, nose pain, photophobia, tearing, throat pain, throat swelling, voice changes, others Respiratory: reports: shortness of breath; denies: cough, hemoptysis, orthopnea, SOB at rest, SOB with excertion, stridor, wheezing, others Cardiovascular: reports: chest pain; denies: dizzy spells, diaphoresis, Dyspnea on exertion, edema, irregular heart beat, left arm pain, lightheadedness, palpitations, PND, syncope, others Gastrointestinal: reports: others (Hiccups); denies: abdomen distended, abdominal pain, blood streaked bowels, constipated, diarrhea, dysphagia, difficulty swallowing, hematemesis, melena, nausea, poor appetite, poor fluid intake, rectal bleeding, rectal pain, vomiting Genitourinary: denies: burning, dysuria, flank pain, frequency, hematuria, incontinence, penile discharge, penile sore, pain, testicle pain, testicle swelling, urgency, others Neurological: denies: dizziness, fainting, headache, left sided numbness, left sided weakness, numbness, paresthesia, pre-existing deficit, right sided numbness, right sided weakness, seizure, speech problems, tingling, tremors, weakness, others Musculoskeletal: denies: back pain, gout, joint pain, joint swelling, muscle pain, muscle stiffness, neck pain, others Integumetry: denies: bruises, change in color, change in hair/nails, dryness, laceration, lesions, lumps, rash, wounds, others Allergic/Immunocompromised: denies: Difficulty Healing, Frequent Infections, Hives, Itching, others Hematologic/Lymphatic: denies: anemia, blood clots, easy bleeding, easy bruising, swollen glands, others Endocrine: denies: excessive hunger, excessive sweating, excessive thirst, excessive urination, flushing, intolerance to cold, intolerance to heat, unexplained weight gain, unexplained weight loss, others Psychiatric: denies: anxiety, bipolar disorder, depression, hopeless, panic disorder, schizophrenia, sleepless, suicidal, others All Other Systems: Reviewed and Negative Physical Exam General Appearance: Moderate Distress ( [id number] distress due to multi week hiccup concerns), Normal HEENT: Pharynx Normal, TMs Normal, Other ( patient is displaying hiccups throughout evaluation.) Neck: Full Range of Motion, Non-Tender, Normal, Normal Inspection Respiratory: Chest Non-Tender, Lungs Clear, No Accessory Muscle Use, No Respiratory Distress, Normal Breath Sounds Cardiovascular: No Edema, No JVD, No Murmur, No Gallop, Normal Peripheral Pulses, Regular Rate/Rhythm Breast Exam: Deferred Gastrointestinal: Other ( Diffuse epigastric tenderness to palpation throughout. No pulsatile masses. No signs of trauma.) Genitalia: Deferred Pelvic: Deferred Rectal: Deferred Extremities: No calf tenderness, Normal capillary refill, Normal inspection, Normal range of motion, Non-tender, No pedal edema Neurologic: Alert, No Motor Deficits, Normal Affect, Normal Mood, No Sensory Deficits Cerebellar Function: Normal Reflexes: Normal Skin: Dry, Normal Color, Warm Lymphatic: No Adenopathy Was a procedure done? Was a procedure done?: No Differential Dx Considerations may include: Intractable hiccups, chronic pancreatitis, electrolyte abnormality, sepsis, UTI X-Ray, Labs, Meds, VS Vital Signs Date Time Temp Pulse Resp B/P (MAP) Pulse Ox O2 Delivery O2 Flow Rate FiO2 10/11/24 19: 98.7 61 19 110/59 (76) 96 98.7 10/11/24 19:29 61 19 96 Room Air 10/11/24 18:27 98.8 61 18 120/61 (80) 98 98.8 10/11/24 16:09 56 10/11/24 16:06 98.2 60 22 101/66 (78) 100 98.2 10/11/24 16:06 22 100 Room Air* 0 21 Lab Test 10/11/24 19:32 10/11/24 16:24 Range/Units Urine Color Light-yellow Yellow Urine Clarity Clear Clear Urine pH 6.0 5.0-9.0 [address] [place] 1.020 1.001-1.035 Urine Protein Trace H Negative Urine Ketones 4+ H Negative Urine Blood Negative Negative /uL Urine Nitrite Negative Negative Urine Bilirubin Negative Negative Urine Urobilinogen Normal Negative mg/dL Urine Leukocyte Esterase Negative Negative /uL Urine RBC 1 0 - 3 /hpf Urine Microscopic WBC 6 H 0-3 /HPF Urine Squamous Epithelial Cells Few <5 /hpf Urine Bacteria None seen None Seen /hpf Urine Mucus Few None Seen Urine Glucose Normal Normal mg/dL Urine Opiates Screen Neg NEGATIVE Urine Fentanyl Screen Neg NEGATIVE Urine Barbiturates Screen Neg NEGATIVE Urine Phencyclidine Screen Neg NEGATIVE Urine Amphetamines Screen Neg NEGATIVE Urine Benzodiazepines Screen Neg NEGATIVE Urine Cocaine Screen Neg NEGATIVE Urine Cannabinoids Screen Neg NEGATIVE White Blood Count 6.2 # 4.4-10.8 10^3/uL Red Blood Count 4.84 4.5-5.90 10^6/uL Hemoglobin 14.0 13.5-17.5 g/dL Hematocrit 41.3 41.0-53.0 % Mean Corpuscular Volume 85.4 80.0-100.0 fL Mean Corpuscular Hemoglobin 29.0 28.0-32.0 pg Mean Corpuscular Hemoglobin Concent 34.0 32.0-36.0 g/dL Red Cell Distribution Width 12.9 11.8-14.3 % Platelet Count 162 140-450 10^3/uL Mean Platelet Volume 9.7 6.9-10.8 fL Neutrophils (%) (Auto) 70.2 37.0-80.0 % Lymphocytes (%) (Auto) 18.1 10.0-50.0 % Monocytes (%) (Auto) 11.0 0.0-12.0 % Eosinophils (%) (Auto) 0.5 0.0-7.0 % Basophils (%) (Auto) 0.2 0.0-2.0 % Neutrophils # (Auto) 4.4 1.6-8.6 10 ^3/uL Lymphocytes # (Auto) 1.1 0.4-5.4 10 ^3/uL Monocytes # (Auto) 0.7 0-1.3 10 ^3/uL Eosinophils # (Auto) 0 0-0.8 10 ^3/uL Basophils # (Auto) 0 0-0.2 10 ^3/uL Nucleated Red Blood Cells 0.1 % Sodium Level 131 L 136-145 mmol/L Potassium Level 3.2 L 3.5-5.1 mmol/L Chloride Level 94 L 98-107 mmol/L Carbon Dioxide Level 25 20-31 mmol/L Anion Gap 12 5-15 Blood Urea Nitrogen 8 L 9-23 mg/dL Creatinine 0.77 0.700-1.30 mg/dL Glomerular Filtration Rate Calc 120 >90 mL/min BUN/Creatinine Ratio 10.4 10.0-20.0 Serum Glucose 107 H 74-106 mg/dL Calcium Level 8.7 8.7-10.4 mg/dL Total Bilirubin 0.8 0.2-1.0 mg/dL Aspartate Amino Transferase (AST) 28 13-40 U/L Alanine Aminotransferase (ALT) 14 7-40 U/L Alkaline Phosphatase 59 46-116 U/L Troponin I High Sensitivity < 3 L </=54 ng/L Total Protein 6.7 5.7-8.2 g/dL Albumin 4.2 3.2-4.8 g/dL Lipase 137 H 12-53 U/L Plasma/Serum Blood Alcohol < 3.0 <10 mg/dL [facility] [id number] [facility] [address] Ph: [phone] DIAGNOSTIC IMAGING Diagnostic Imaging Report : [id number] Signed PATIENT: TYLER MURRYT: [id number] UNIT: [id number] : 1990 LOC: ER ROOM / BED: / AGE / SEX: 33 / M ADM STATUS: REG ER SERVICE 1650 ORDERING PHYSICIAN: JAMAICA MAYA PAC PROCEDURE(s): CXRP - CHEST PORTABLE REASON: Shortness of breath ORDER NUMBER(s): [id number], ACCESSION NUMBER(s): [id number] EXAM: XY CHEST PORTABLE TECHNIQUE: Single frontal chest radiograph CLINICAL HISTORY: Shortness of breath COMPARISON: XY CHEST PORTABLE on DOS: 10/07/24 Findings/Impression: Frontal chest radiograph demonstrates no acute osseous or superficial soft tissue abnormalities. The trachea is midline. The cardiac silhouette and mediastinum are within normal limits. No pneumothorax, pleural effusions, or consolidations. ATED BY: ELSIE MCCAULEY DO DICTATED DATE/TIME: 10/11/241725 SIGNED BY: ELSIE MCCAULEY DO SIGNED DATE/TIME: 10/11/241725 CC: X-Ray, Labs, Meds, VS Comment All studies performed the ED were evaluated by me personally. Laboratories st udies were confirmation will for an elevated lipase. Rest of the serum studies were unremarkable. Chest x-ray was unremarkable for any acute process. We attempted to medicate the patient with Thorazine, but I was informed that we did not have the medication available to our facility. Discussed the concerns with the patient and he asked to be discharged as he will go to another facility for medication as needed. Advised patient I will send him home with a prescription for the Thorazine and hopefully he will be able to ascertain that medication at the pharmacy. Time of 1ST Reevaluation: 20:45 Reevaluation 1ST: Unchanged Consultation: PCP Patient Education/Counseling: Diagnosis, Treatment Family Education/Counseling: Diagnosis, Treatment Departure 1 Departure Time of Disposition: 20:46 Impression: Primary Impression: Intractable hiccups Additional Impression: Chronic pancreatitis Disposition: 01 HOME / SELF CARE / HOMELESS Condition: Stable Additional Instructions: Advised patient utilize medication as directed and as needed. If symptoms continue, patient has been advised to follow up with a another ED for evaluation and medication management. e-Prescriptions Chlorpromazine HCl (Chlorpromazine Hydrochlor) 25 Mg Tab 25 MG PO TID, #9 TAB Prov: JAMAICA MAYA PAC 10/11/24 Discharged With: Self, Relative (Mother) Critical Care Note Critical Care Time?: No Stability Stability form required: No Heart Score Heart Score: Heart Score Response (Comments) Value History N/A 0 EKG N/A 0 Age N/A 0 Risk Factors N/A 0 Troponin N/A 0 Total 0 I personally scribed for JAMAICA MAYA PAC ([email or web address]) on 10/11/24 at 16:53. Electronically submitted by Maury Monge ([email or web address]). I personally scribed for JAMAICA MAYA PAC ([email or web address]) on 10/11/24 at 19:58. Electronically submitted by Daja Stokes ([email or web address]). JAMAICA MAYA PAC Oct 11, 2024 16:53
[2024-10-11 17:11] LABS: Basophils # (auto) 0 10 ^3/uL (0-0.2); Basophils % (auto) 0.2 % (0.0-2.0); Eosinophils # (auto) 0 10 ^3/uL (0-0.8); Eosinophils % (auto) 0.5 % (0.0-7.0); Hematocrit 41.3 % (41.0-53.0); Lymphocytes # (auto) 1.1 10 ^3/uL (0.4-5.4); Lymphocytes % (auto) 18.1 % (10.0-50.0); Mean Corpuscular Volume 85.4 fL (80.0-100.0); Monocytes # (auto) 0.7 10 ^3/uL (0-1.3); Neutrophils # (auto) 4.4 10 ^3/uL (1.6-8.6); Neutrophils % (auto) 70.2 % (37.0-80.0); Nucleated Red Blood Cells % 0.1 %; Platelet Count (auto) 162 10^3/uL (140-450); Red Blood Cells 4.84 10^6/uL (4.5-5.90); Red Cell Distribution Width 12.9 % (11.8-14.3); White Blood Cell 6.2 10^3/uL (4.4-10.8)
--- NOTE | 2024-10-11 17:29 | DVH ---
EXAM: XY CHEST PORTABLE TECHNIQUE: Single frontal chest radiograph CLINICAL HISTORY: Shortness of breath COMPARISON: XY CHEST PORTABLE on DOS: 10/07/24 Findings/Impression: Frontal chest radiograph demonstrates no acute osseous or superficial soft tissue abnormalities. The trachea is midline. The cardiac silhouette and mediastinum are within normal limits. No pneumothorax, pleural effusions, or consolidations.
[2024-10-11 17:31] LABS: Alanine Aminotransferase 14 U/L (7-40); Albumin 4.2 g/dL (3.2-4.8); Alkaline Phosphatase 59 U/L (46-116); Anion Gap 12 (5-15); Aspartate Aminotransferase 28 U/L (13-40); BUN/Creatinine Ratio 10.4 (10.0-20.0); Bilirubin, Total 0.8 mg/dL (0.2-1.0); Blood Alcohol < 3.0 mg/dL (<10); Blood Urea Nitrogen 8 mg/dL (9-23); Calcium 8.7 mg/dL (8.7-10.4); Carbon Dioxide 25 mmol/L (20-31); Chloride 94 mmol/L (98-107); Glucose 107 mg/dL (74-106); Potassium 3.2 mmol/L (3.5-5.1); Sodium 131 mmol/L (136-145); Total Protein 6.7 g/dL (5.7-8.2)
[2024-10-11 17:44] LABS: Lipase 137 U/L (12-53)
[2024-10-11] MEDS: chlorproMAZINE HCL 25 MG/1 ML AMP IM ONE (19:37)
[2024-10-11 19:54] LABS: Urine Bacteria None Seen /hpf (None Seen)
[2024-10-11 20:10] LABS: Urine Blood Negative /uL (Negative); Urine Clarity Clear (Clear); Urine Color Light-Yellow (Yellow); Urine Mucus FEW (None Seen); Urine Protein, UAD TRACE (Negative); Urine Squamous Epithelial Cell FEW /hpf (<5); Urine Urobilinogen Normal (Negative); Urine WBC 6 /HPF (0-3)
[2024-10-11 20:20] LABS: Barbiturate Scree,Urine Neg (NEGATIVE)
[2024-10-11 20:22] LABS: Amphetamine Screen, Urine Neg (NEGATIVE); Benzodiazephine Screen, Urine Neg (NEGATIVE); Cannabinoid Screen, Urine Neg (NEGATIVE); Cocaine Screen, Urine Neg (NEGATIVE); Opiate Scree,Urine Neg (NEGATIVE); Phencyclidine Screen, Urine Neg (NEGATIVE)
[2024-10-11] MEDS ORDERED: CHLO25TA59 PO (20:48)
[2024-10-11 21:05] VITALS: BP 98/69; PULSE 60; RESP 20; TEMP 98.6; O2SAT 96
--- NOTE | 2024-10-13 11:13 | ECG ---
[facility] Test Date: 2024-10-11 Test Time: 16:09:46 Pat Name: SMITH MURRY Department: ER Room: Gender: M Manager Inventory Management: : 1990 Requested By: JAMAICA MAYA Order Number: [id number] Reading MD: Minh Faust Measurements Intervals [place] Rate: 56 P: 49 [place]: 150 QRS: -46 QRSD: 108 T: 129 QT: 443 QTc: 428 Interpretive Statements Sinus rhythm Left axis deviation Low voltage, extremity leads RSR' in V1 or V2, probably normal variant Abnormal T, consider ischemia, lateral leads Electronically Signed On 10-15-2024 21:58:31 PDT by Minh Faust Please click the below link to view image of tracing.
== END 2024-10-11 21:28 | disposition home or self-care (01) ==
LOC: ER 15:54
DX: R06.6 Hiccough (principal); R06.02 Shortness of breath; K86.1 Other chronic pancreatitis; Z79.899 Other long term (current) drug therapy; F41.9 Anxiety disorder, unspecified; K21.9 Gastro-esophageal reflux disease without esophagitis
CPT/HCPCS: 36415; 71045; 80053; 80307; 80320; 81001; 83690; 84484; 85025; 93005